=== PATIENT | female | born 1955 | race Hispanic/Latino ===

== ENCOUNTER 2025-01-24 19:55 | Inpatient (IN) | payer MEDICARE ==
[~2025-01-24] VITALS: Ht 154.9 cm; Wt 63.8 kg
[2025-01-24] MEDS ORDERED: SODIUM CHLORIDE FLUSH 10 ML SYR IV PRN (23:15)
[2025-01-24 23:20] VITALS: TEMP 99.3
[2025-01-24] MEDS: SODIUM CHLORIDE 0.9% 1000ML 1,000 ML IV ONE (23:37)
[2025-01-24] MEDS: ACETAMINOPHEN 325 MG TAB PO ONE (23:38)
[2025-01-24] MEDS: ONDANSETRON HCL INJ 2MG/ML 2ML 2 MG/ML VIAL IV STA (23:38)
[2025-01-25] VITALS (17 sets, daily range): BP systolic 99–135; BP diastolic 29–54; PULSE 67–94; RESP 13–21; TEMP 97.4–98.5; O2SAT 93–100
[2025-01-25 01:12] LABS: BASOPHILS % 0.3 % (0.0-1.0); EOSINOPHILS % 0.1 % (0.0-6.0); LYMPHOCYTES % 5.2 % (18.0-39.1); MONOCYTES % 7.6 % (4.4-11.3); NEUTROPHILS % 86.5 % (38.7-80.0); RED CELL DISTRIBUTION WIDTH 13.3 % (11.7-14.4)
[2025-01-25 01:24] LABS: EST GLOMERULAR FILTRATION RATE 56.0 ML/MIN (>=60)
[2025-01-25] MEDS: SODIUM CHLORIDE 0.9% 1000ML 1,000 ML IV ONE (01:47)
[2025-01-25 02:19] LABS: LEUKOCYTE ESTERASE ,URINE LARGE (NEGATIVE); PROTEIN,URINE DIPSTICK 1+ (NEGATIVE); URINE UROBILINOGEN 0.2 mg/dL (0.2 - 1)
[2025-01-25 02:25] LABS: EPITHELIAL CELLS,URINE FEW /LPF; WBC,URINE (MAN) >50 /HPF (0-5)
[2025-01-25] MEDS ORDERED: ONDANSETRON HCL INJ 2MG/ML 2ML 2 MG/ML VIAL IV PRN (02:45)
[2025-01-25] MEDS: SODIUM CHLORIDE 0.9% 1000ML 1,000 ML IV SCH (03:04)
[2025-01-25] MEDS ORDERED: LEVOTHYROXINE75 MCG PO (05:34)
[2025-01-25] MEDS ORDERED: CEPHALEXIN500 MG PO (05:34)
[2025-01-25] MEDS ORDERED: ATORVASTATIN CA10 MG PO (05:34)
[2025-01-25] MEDS ORDERED: DDAVP0.1 MG PO ×2 (05:34)
[2025-01-25] MEDS ORDERED: BENZONATATE 100 MG CAP PO PRN (13:00)
[2025-01-25] MEDS ORDERED: DIPHENHYDRAMINE HCL 25 MG CAP PO PRN (13:00)
[2025-01-25] MEDS ORDERED: HYDRALAZINE HCL 20 MG/ML VIAL IV PRN (13:00)
[2025-01-25] MEDS ORDERED: DEXTROSE 50% SYRINGE 50 ML IV PRN (13:00)
[2025-01-25] MEDS ORDERED: POTASSIUM CHLORIDE 20 MEQ TAB CR PO PRN (13:00)
[2025-01-25] MEDS ORDERED: DOCUSATE SODIUM 100 MG CAP PO PRN (13:00)
[2025-01-25] MEDS ORDERED: SIMETHICONE 80 MG CHEW PO PRN (13:00)
[2025-01-25] MEDS ORDERED: PHENAZOPYRIDINE HCL 100 MG TAB PO PRN (13:00)
[2025-01-25] MEDS ORDERED: ALBUTEROL/IPRATROPIUM 3 ML NEB NEB PRN (13:00)
[2025-01-25] MEDS ORDERED: LIDOCAINE 4% PATCH TP PRN (13:00)
[2025-01-25] MEDS ORDERED: IOPAMIDOL 370 MG/ML 100 ML INFUS..BTL INJ ONE (16:02)
[2025-01-25] MEDS: ENOXAPARIN SOD INJ 40 MG/0.4 ML SYR SC SCH (16:50)
[2025-01-25] MEDS: ATORVASTATIN 10 MG TAB PO SCH (21:26)
[2025-01-25] MEDS: MELATONIN 5 MG TABLET PO PRN (21:26)
[2025-01-25] MEDS: ACETAMINOPHEN 325 MG TAB PO PRN (21:26)
[2025-01-26] VITALS (10 sets, daily range): BP systolic 104–141; BP diastolic 51–82; PULSE 67–88; RESP 16–18; TEMP 97.3–98.5; O2SAT 96–100
[2025-01-26] MEDS: LEVOTHYROXINE SODIUM 75 MCG TAB PO SCH (05:56)
[2025-01-26 06:30] LABS: BASOPHILS % 0.5 % (0.0-1.0); EOSINOPHILS % 0.2 % (0.0-6.0); LYMPHOCYTES % 12.0 % (18.0-39.1); MONOCYTES % 8.9 % (4.4-11.3); NEUTROPHILS % 77.9 % (38.7-80.0); RED CELL DISTRIBUTION WIDTH 14.1 % (11.7-14.4)
[2025-01-26 07:03] LABS: EST GLOMERULAR FILTRATION RATE 83.0 ML/MIN (>=60)
[2025-01-26 07:05] LABS: CHOL/HDL RATIO 11.5 (3.0-3.6); LDL CHOLESTEROL 43.0 MG/DL (60-130); PHOSPHORUS 3.2 MG/DL (2.3-4.7)
[2025-01-26] MEDS: PANTOPRAZOLE SOD 40 MG TABEC PO SCH (08:10)
[2025-01-26] MEDS: DEXTROSE 5% 1,000 ML IV SCH (16:49)
[2025-01-26] MEDS: DESMOPRESSIN 0.1 MG PO SCH (20:55)
[2025-01-27] VITALS (9 sets, daily range): BP systolic 130–156; BP diastolic 57–87; PULSE 68–76; RESP 16–18; TEMP 97.4–98.5; O2SAT 96–100
[2025-01-27 07:05] LABS: BASOPHILS % 0.9 % (0.0-1.0); EOSINOPHILS % 0.7 % (0.0-6.0); LYMPHOCYTES % 20.5 % (18.0-39.1); MONOCYTES % 8.9 % (4.4-11.3); NEUTROPHILS % 67.9 % (38.7-80.0); RED CELL DISTRIBUTION WIDTH 13.8 % (11.7-14.4)
[2025-01-27 07:24] LABS: EST GLOMERULAR FILTRATION RATE 83.0 ML/MIN (>=60)
[2025-01-27] MEDS ORDERED: DESMOPRESSIN ACETATE 0.1 MG PO SCH (12:00)
[2025-01-27] MEDS ORDERED: DESMOPRESSIN 0.1 MG PO SCH (12:00)
[2025-01-27] MEDS: DESMOPRESSIN 0.1 MG PO SCH (21:19)
[2025-01-28 05:28] LABS: BASOPHILS % 0.7 % (0.0-1.0); EOSINOPHILS % 0.8 % (0.0-6.0); LYMPHOCYTES % 15.6 % (18.0-39.1); MONOCYTES % 5.3 % (4.4-11.3); NEUTROPHILS % 76.7 % (38.7-80.0); RED CELL DISTRIBUTION WIDTH 13.8 % (11.7-14.4)
[2025-01-28 05:59] LABS: EST GLOMERULAR FILTRATION RATE 81.0 ML/MIN (>=60)
[2025-01-28 06:57] VITALS: PULSE 77; RESP 16; O2SAT 93
[2025-01-28 08:00] VITALS: BP 140/66; PULSE 71; RESP 17; TEMP 98.4; O2SAT 98
[2025-01-28 08:35] LABS: EOSINOPHILS % (MANUAL) 1 % (0-7); LYMPHOCYTES % (MANUAL) 16 % (19-48); MONOCYTES % (MANUAL) 5 % (3.4-9.0); NEUTROPHILS % (MANUAL) 78 % (40-74)
[2025-01-28 08:36] LABS: PLATELET ESTIMATE ADEQUATE; PLATELET MORPHOLOGY COMMENT NORMAL
[2025-01-28 09:00] VITALS: BP 140/66; PULSE 71; RESP 17; TEMP 98.4; O2SAT 98
[2025-01-28] MEDS ORDERED: DIATRIZOATE MEGL/DIATRIZOA SOD 120 ML BTL PO ONE (10:59)
[2025-01-28 12:00] VITALS: BP 137/60; PULSE 77; RESP 17; TEMP 97.7; O2SAT 99
[2025-01-28 16:00] VITALS: BP 132/60; PULSE 72; RESP 17; TEMP 98.7; O2SAT 100
[2025-01-28 16:08] LABS: BASOPHILS % 0.8 % (0.0-1.0); EOSINOPHILS % 0.7 % (0.0-6.0); LYMPHOCYTES % 14.9 % (18.0-39.1); MONOCYTES % 4.8 % (4.4-11.3); NEUTROPHILS % 77.8 % (38.7-80.0); RED CELL DISTRIBUTION WIDTH 14.0 % (11.7-14.4)
[2025-01-28 16:33] LABS: EST GLOMERULAR FILTRATION RATE 75.0 ML/MIN (>=60)
[2025-01-28 20:00] VITALS: BP 128/60; PULSE 75; RESP 20; TEMP 98.1; O2SAT 98
[2025-01-29] VITALS (9 sets, daily range): BP systolic 111–123; BP diastolic 53–57; PULSE 66–74; RESP 16–20; TEMP 97–98.9; O2SAT 94–100
[2025-01-29 05:40] LABS: BASOPHILS % 0.5 % (0.0-1.0); EOSINOPHILS % 0.9 % (0.0-6.0); LYMPHOCYTES % 14.8 % (18.0-39.1); MONOCYTES % 4.1 % (4.4-11.3); NEUTROPHILS % 78.9 % (38.7-80.0); RED CELL DISTRIBUTION WIDTH 13.4 % (11.7-14.4)
[2025-01-29 06:02] LABS: EST GLOMERULAR FILTRATION RATE 66.0 ML/MIN (>=60)
[2025-01-29 08:17] LABS: EOSINOPHILS % (MANUAL) 3 % (0-7); LYMPHOCYTES % (MANUAL) 14 % (19-48); MONOCYTES % (MANUAL) 8 % (3.4-9.0); NEUTROPHILS % (MANUAL) 70 % (40-74); PLATELET ESTIMATE ADEQUATE; PLATELET MORPHOLOGY COMMENT NORMAL; RBC MORPHOLOGY COMMENT NORMAL; REACTIVE LYMPHOCYTES 5
[2025-01-29 16:30] LABS: BASOPHILS % 0.7 % (0.0-1.0); EOSINOPHILS % 1.3 % (0.0-6.0); LYMPHOCYTES % 15.6 % (18.0-39.1); MONOCYTES % 4.0 % (4.4-11.3); NEUTROPHILS % 77.5 % (38.7-80.0); RED CELL DISTRIBUTION WIDTH 13.6 % (11.7-14.4)
[2025-01-30] MEDS: KETOROLAC TROMETHAMINE 30 MG/ML VIAL IV SCH (00:30)
[2025-01-30 05:15] VITALS: BP 114/54; PULSE 63; RESP 19; TEMP 97.7
[2025-01-30 05:33] LABS: BASOPHILS % 0.5 % (0.0-1.0); EOSINOPHILS % 1.5 % (0.0-6.0); LYMPHOCYTES % 22.1 % (18.0-39.1); MONOCYTES % 5.3 % (4.4-11.3); NEUTROPHILS % 69.4 % (38.7-80.0); RED CELL DISTRIBUTION WIDTH 13.3 % (11.7-14.4)
[2025-01-30 06:02] LABS: PROLACTIN 0.4 ng/mL (3.6-25.2)
[2025-01-30 06:26] VITALS: PULSE 74; RESP 20; O2SAT 98
[2025-01-30 08:57] VITALS: BP 112/52; PULSE 59; RESP 18; TEMP 97.7; O2SAT 97
[2025-01-30 09:28] VITALS: BP 112/52; PULSE 59; RESP 18; TEMP 97.7; O2SAT 97
[2025-01-30 09:37] LABS: LYMPHOCYTES % (MANUAL) 19 % (19-48); MONOCYTES % (MANUAL) 7 % (3.4-9.0); MYELOCYTES % (MANUAL) 1 % (0-0); NEUTROPHILS % (MANUAL) 73 % (40-74); PLATELET ESTIMATE ADEQUATE; PLATELET MORPHOLOGY COMMENT NORMAL; RBC MORPHOLOGY COMMENT NORMAL
[2025-01-30 12:27] VITALS: BP 109/62; PULSE 62; RESP 19; TEMP 97.5; O2SAT 97
[2025-01-30] MEDS: CEPHALEXIN 500 MG CAP PO ONE (13:59)
== END 2025-01-30 16:50 | disposition home or self-care (01) | DRG 872 ==
LOC: ER 23:11 → ERHOLD 01-25 02:37 → ICU 01-25 03:26 → MED/SURG2 01-25 16:18
PROVIDERS: ADMIT Internal Medicine; ATTEND Internal Medicine
PROC: 3E0333Z Introduction of Anti-inflammatory into Peripheral Vein, Percutaneous Approach (ICD-10-PCS; principal; 2025-01-25)
DX: A41.51 Sepsis due to Escherichia coli [E. coli] (principal); E23.2 Diabetes insipidus; E23.0 Hypopituitarism; N39.0 Urinary tract infection, site not specified; N12 Tubulo-interstitial nephritis, not specified as acute or chronic; Z16.29 Resistance to other single specified antibiotic; K80.20 Calculus of gallbladder without cholecystitis without obstruction; E86.9 Volume depletion, unspecified; E78.5 Hyperlipidemia, unspecified; E83.52 Hypercalcemia; E89.0 Postprocedural hypothyroidism; K22.5 Diverticulum of esophagus, acquired; Z79.890 Hormone replacement therapy; Z90.710 Acquired absence of both cervix and uterus; Z88.0 Allergy status to penicillin
CPT/HCPCS: 36415; 74177; 74220; 76700; 80048; 80053; 80061; 81001; 82948; 83036; 83615; 83735; 84100; 84146; 84439; 84443; 84481; 85025; 87040; 87086; 87186; 93005; 94799; 99284; J0696; J1650; J2405; J2470; J7030; J7070; Q9967